=== PATIENT | female | born 1990 | race Caucasian/White ===

== ENCOUNTER 2019-02-25 09:07 | Emergency (ER) | payer OTHER ==
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
== END 2019-02-25 09:30 | disposition home or self-care (01) ==
LOC: MW.ED 09:07
DX: S09.90XA Unspecified injury of head, initial encounter (principal); W22.8XXA Striking against or struck by other objects, initial encounter; Y92.481 Parking lot as the place of occurrence of the external cause; Y99.0 Civilian activity done for income or pay
CPT/HCPCS: 99283

== ENCOUNTER 2019-10-18 11:12 | Emergency (ER) | payer MEDICAID, OTHER ==
[2019-10-18] MEDS ORDERED: Sulfamethoxazole/Trimethoprim 800-160 MG Tab PO ONE (11:27)
[2019-10-18] MEDS ORDERED: Phenazopyridine 200 MG Tab PO ONE (11:27)
--- NOTE | 2019-10-18 11:34 | EDM.PDOC ---
ED HPI GENERAL MEDICAL PROBLEM - General Chief Complaint: Genitourinary Problem Stated Complaint: KIDNEY STONE OR BLADDER INFECTION Time Seen by Provider: 10/18/19 11:25 Source of Information: Reports: Patient History Limitations: Reports: No Limitations - History of Present Illness INITIAL COMMENTS - FREE TEXT/NARRATIVE: This 29 year old female with a history of UTI's is admitted to the ED with a chief complaint of painful urination with burning over the past two weeks. She states that her symptoms are getting worse. She complains of frequent urination with urgency. She denies any other complaints at this time. Onset: Gradual (two weeks) Duration: Constant (pubic pain.), Getting Worse Location: Reports: Abdomen (lower abdomen) bladder Pain Score (Numeric/FACES): 6 - Related Data Allergies Allergy/AdvReac Type Severity Reaction Status Date / Time No Known Allergies Allergy Verified 02/25/19 09:16 Home Meds: Home Meds Phenazopyridine HCl [Pyridium] 100 mg PO BID 3 Days #6 tablet 10/18/19 [Rx] Sulfamethoxazole/Trimethoprim [Septra DS] 1 tab PO BID 10 Days #20 tablet [Rx] Past Medical History - Past Health History Medical/Surgical History: Denies Medical/Surgical History [employer] History: Reports: - Past Surgical History Female Surgical History: Reports: Section Social & Family History - Family History Family Medical History: Noncontributory - Tobacco Use Smoking Status *Q: Current Every Day Smoker Years of Tobacco use: 17 Packs/Tins Daily: 0.5 - Caffeine Use Caffeine Use: Reports: Coffee, Soda - Recreational Drug Use Recreational Drug Use: Yes Recreational Drug Type: Reports: Marijuana/Hashish ED ROS GENERAL - Review of Systems Review Of Systems: See Below Constitutional: Reports: No Symptoms HEENT: Reports: No Symptoms Respiratory: Reports: No Symptoms Cardiovascular: Reports: No Symptoms Endocrine: Reports: No Symptoms GI/Abdominal: Reports: Abdominal Pain : Reports: Dysuria, Frequency, Urgency. Denies: Discharge, Hematuria, Incontinence, Urinary Retention Musculoskeletal: Reports: No Symptoms Skin: Reports: No Symptoms Neurological: Reports: No Symptoms Psychiatric: Reports: No Symptoms ED EXAM, RENAL/ - Physical Exam Exam: See Below Exam Limited By: No Limitations General Appearance: Alert, WD/WN, No Apparent Distress Eye Exam: Bilateral Eye: EOMI, Normal Inspection, PERRL Ears: Normal External Exam, Normal Canal, Hearing Grossly Normal, Normal TMs Nose: Normal Inspection, Normal Mucosa, No Blood Throat/Mouth: Normal Inspection, Normal Lips, Normal Teeth, Normal Gums, Normal Oropharynx, Normal Voice, No Airway Compromise Neck: Normal Inspection, Supple, Non-Tender, Full Range of Motion Respiratory/Chest: No Respiratory Distress, Lungs Clear, Normal Breath Sounds, No Accessory Muscle Use, Chest Non-Tender Cardiovascular: Normal Peripheral Pulses, Regular Rate, Rhythm, No Edema, No Gallop, No JVD, No Murmur, No Rub GI/Abdominal: Normal Bowel Sounds, Soft, Tender (in the pubic area) (Female) Exam: Deferred Rectal (Female) Exam: Deferred Back Exam: Normal Inspection, Full Range of Motion. No: CVA Tenderness (L), CVA Tenderness (R) Extremities: Normal Inspection, Normal Range of Motion, Non-Tender, Normal Capillary Refill, No Pedal Edema Neurological: Alert, Oriented, CN II-XII Intact, Normal Cognition, Normal Gait, Normal Reflexes, No Motor/Sensory Deficits Lymphatic: No Adenopathy Course - Vital Signs Text/Narrative:: I discussed with the patient her diagnosis of UTI plus Trichomonas infection. She was given a one time treatment of Flagyl 2 grams PO and was told to continue with the antibiotics for her UTI. She will be discharged shortly. The patient agrees with the discharge plan. Last Recorded V/S: Last Vital Signs Temp 96.7 F 10/18/19 11:17 Pulse 126 H 10/18/19 11:17 Resp 18 10/18/19 11:17 BP 139/79 10/18/19 11:17 Pulse Ox 96 10/18/19 11:17 - Orders/Labs/Meds Orders: Active Orders 24 hr Category Date Time Status CULTURE URINE [RM] Stat Lab 10/18/19 11:20 Received Labs: Laboratory Tests 10/18/19 Range/Units 11:20 Urine Color YELLOW Urine Appearance SLT CLOUDY Urine pH 6.0 (5.0-8.0) Ur Specific [place] 1.020 (1.001-1.035) Urine Protein NEGATIVE (NEGATIVE) mg/dL Urine Glucose (UA) NEGATIVE (NEGATIVE) mg/dL Urine Ketones NEGATIVE (NEGATIVE) mg/dL Urine Occult Blood TRACE-INTACT H (NEGATIVE) Urine Nitrite NEGATIVE (NEGATIVE) Urine Bilirubin NEGATIVE (NEGATIVE) Urine Urobilinogen 0.2 (<2.0) EU/dL Ur Leukocyte Esterase SMALL H (NEGATIVE) Urine RBC 0-2 (0-2/HPF) Urine WBC 4-8 (0-5/HPF) Ur Epithelial Cells FEW (NONE-FEW) Urine Bacteria FEW (NEGATIVE) Urine Trichomonas PRESENT (NEGATIVE) Urinalysis Comment Meds: Medications Discontinued Medications Generic Name Dose Route Start Last Admin Trade Name Risa PRN Reason Stop Dose Admin Metronidazole 2,000 mg 10/18/19 12:51 Metronidazole PO 10/18/19 12:52 NOW ONE Phenazopyridine HCl 200 mg 10/18/19 11:27 10/18/19 11:43 Pyridium PO 10/18/19 11:28 200 mg ONETIME ONE Administration Trimethoprim/Sulfamethoxazole 1 tab 10/18/19 11:27 10/18/19 11:43 Septra Ds PO 10/18/19 11:28 1 tab ONETIME ONE Administration Departure - Departure Time of Disposition: 12:59 Disposition: Home, Self-Care 01 Condition: Good Clinical Impression: UTI, Urinary tract infectious disease, Trichomonal cystitis Clinical Impression: (Ruled Out): Sprain of shoulder, right - Discharge Information *PRESCRIPTION DRUG MONITORING PROGRAM REVIEWED*: Yes *COPY OF PRESCRIPTION DRUG MONITORING REPORT IN PATIENT LOGAN: Yes Referrals: PCP,None [Primary Care Provider] - Forms: ED Department Discharge Additional Instructions: Take all of your medications as directed. Inform all sexual contacts of your diagnosis of Trichomonas so that they can be treated, if not they can spread the disease. Drink plenty of clear liquids. Return to the ED if your condition gets worse. The following information is given to patients seen in the emergency department who are being discharged to home. This information is to outline your options for follow-up care. We provide all patients seen in our emergency department with a follow-up referral. The need for follow-up, as well as the timing and circumstances, are variable depending upon the specifics of your emergency department visit. If you don't have a primary care physician on staff, we will provide you with a referral. We always advise you to contact your personal physician following an emergency department visit to inform them of the circumstance of the visit and for follow-up with them and/or the need for any referrals to a consulting specialist. The emergency department will also refer you to a specialist when appropriate. This referral assures that you have the opportunity for follow-up care with a specialist. All of these measure are taken in an effort to provide you with optimal care, which includes your follow-up. Under all circumstances we always encourage you to contact your private physician who remains a resource for coordinating your care. When calling for follow-up care, please make the office aware that this follow-up is from your recent emergency room visit. If for any reason you are refused follow-up, please contact the [facility] Emergency Department at and asked to speak to the emergency department charge nurse. Sepsis Event Note - Evaluation Sepsis Screening Result: No Definite Risk - Focused Exam Vital Signs: Vital Signs Temp Pulse Resp BP Pulse Ox 10/18/19 11:17 96.7 F 126 H 18 139/79 96 Date Exam was Performed: 10/18/19 Time Exam was Performed: 12:56 - My Orders Last 24 Hours: My Active Orders 10/18/19 11:20 CULTURE URINE [RM] Stat - Assessment/Plan Last 24 Hours: My Active Orders 10/18/19 11:20 CULTURE URINE [RM] Stat
[2019-10-18] MEDS ORDERED: metroNIDAZOLE 250 MG Tab PO ONE (12:51)
== END 2019-10-18 13:24 | disposition home or self-care (01) ==
LOC: MW.ED 11:12
DX: A59.03 Trichomonal cystitis and urethritis (principal); F17.210 Nicotine dependence, cigarettes, uncomplicated
CPT/HCPCS: 81001; 87086; 99283; A9270